=== PATIENT | male | born 1960 | race African-American/Black ===

== ENCOUNTER 2022-02-28 09:47 | Emergency (ER) | payer OTHER, SELFPAY ==
[2022-02-28 09:49] VITALS: BP 145/86; PULSE 62; RESP 14; O2SAT 100
[2022-02-28 10:14] VITALS: O2SAT 98
[2022-02-28 10:15] VITALS: O2SAT 97
[2022-02-28 10:16] VITALS: BP 144/84; O2SAT 97
--- NOTE | 2022-02-28 11:52 | ED.GENADULT ---
HPI - General Adult General Chief complaint: Unspecified Stated complaint: swollen tonsils, difficulty swallowing Time Seen by Provider: 02/28/22 11:37 History of Present Illness HPI narrative: 61-year-old male presents emergency room secondary difficulty in swallowing. He states he felt like something swollen in the back of his throat. Never anything like this before. Denies any chills or fever. No history of recurrent pharyngitis tonsillitis. States he does have a history of some allergies. Related Data Home Medications Medication Instructions Recorded Confirmed atorvastatin 20 mg tablet tablet 02/28/22 Allergies Allergy/AdvReac Type Severity Reaction Status Date / Time tetracycline Allergy Mild Rash Verified 02/28/22 09:52 Sulfa (Sulfonamide Allergy Rash Verified 02/28/22 09:52 Antibiotics) Review of Systems Review of Systems: CONSTITUTIONAL: Denies fever, chills, or sweats. EYES: Denies visual changes, redness, or discharge. ENT: Denies rhinorrhea, congestion, sore throat, or otalgia. Mild difficulty in swallowing. CARDIOVASCULAR: Denies chest pain, palpitations, or edema. RESPIRATORY: Denies cough or dyspnea. GASTROINTESTINAL: Denies abdominal pain, nausea, vomiting, or diarrhea. GENITOURINARY: Denies dysuria or hematuria. SKIN: Denies rash or itching. MUSCULOSKELETAL: Denies back pain, joint pain, or myalgia. NEUROLOGIC: Denies headache, numbness, or weakness. PSYCHIATRIC: Denies anxiety or depression. PMFSH Past Medical History Medical History Allergies Social History Social History Living arrangements: with family Exam Narrative: APPEARANCE: Well appearing, no pain or distress, well-nourished. Head normocephalic and atraumatic. EYES: PERRLA/EOMI, conjunctivae very clear. NOSE: Normal with no drainage EARS:TMS clear Elliott Mejia, with good light reflex. THROAT: Noted to have edema to his uvula. There is no exudates. He is able to speak and swallow without significant difficulty. NECK: Supple. No adenopathy, no masses. RESPIRATORY: Airway patent, respirations nonlabored. Clear to auscultation bilaterally, no rales, rhonchi, wheezing. CARDIOVASCULAR: Regular rate and rhythm without murmurs, rubs, or gallops. ABDOMINAL: Soft, nontender, nondistended, no hepatosplenomegaly Musculoskeletal: Moves all extremities. Strength/ROM intact, No edema, No calf tenderness. NEURO: Alert. Cranial nerves II through XII intact. Normal gait. Good coordination. Nonfocal examination. SKIN:: Warm, dry. Normal Color PSYCHIATRIC: Normal affect/mood, normal interaction Course Vital Signs Vital signs: Vital Signs Pulse Rate 62 02/28/22 09:49 Respiratory Rate 14 02/28/22 09:49 Blood Pressure 145/86 H 02/28/22 09:49 Pulse Oximetry 100 02/28/22 09:49 Pulse Rate 62 02/28/22 09:49 Respiratory Rate 14 02/28/22 09:49 Blood Pressure 144/84 H 02/28/22 10:16 Pulse Oximetry 97 02/28/22 10:16 Medical Decision Making MDM Narrative Medical decision making narrative: Patient reassured that this is just edema to his uvula. We will treat him with some steroids and antihistamines. Also told him to drink cold substance. This generally resolves on its own within 12 to 24 hours. Vital Signs Vital Signs: Vital Signs Pulse Rate 62 02/28/22 09:49 Respiratory Rate 14 02/28/22 09:49 Blood Pressure 145/86 H 02/28/22 09:49 Pulse Oximetry 100 02/28/22 09:49 Pulse Rate 62 02/28/22 09:49 Respiratory Rate 14 02/28/22 09:49 Blood Pressure 144/84 H 02/28/22 10:16 Pulse Oximetry 97 02/28/22 10:16 Discharge Plan Discharge Clinical Impression: Uvular swelling Patient Disposition: Home, Self-Care Condition: Stable Instructions: General Allergic Reaction (ED) Additional Instructions: Drink cold substances. Return if worse. Prescriptions: New
[2022-02-28 11:58] VITALS: BP 132/86; PULSE 92; RESP 19; O2SAT 99
== END 2022-02-28 11:59 | disposition home or self-care (01) ==
PROVIDERS: Emergency Provider Emergency Medicine; PCP Family Medicine Adolescent Medicine
DX: K13.79 Other lesions of oral mucosa (principal)
CPT/HCPCS: 99283

== ENCOUNTER 2022-11-03 03:36 | Emergency (ER) | payer OTHER, SELFPAY ==
[2022-11-03 03:42] VITALS: BP 171/92; PULSE 102; RESP 20; TEMP 37.7; O2SAT 100
--- NOTE | 2022-11-03 04:39 | ED.GENADULT ---
HPI - General Adult General Chief complaint: Urogenital-Male Stated complaint: trouble urinating Time Seen by Provider: 11/03/22 03:52 History of Present Illness HPI narrative: This is a 62-year-old male presenting to ED with chief complaint of difficulty urinating. Patient had a prostate biopsy 6 days ago. Since then he had some blood in his urine and stool. Started to improve and then yesterday started to have significant pain. The pain is located in the suprapubic area, is a dull constant pain is worse when he tries to urinate. Additionally he has rectal pain and pain with defecation. patient's last bowel movement was yesterday. He is still passing gas. patient denies fever, chills, nausea, vomiting. Patient's urologist is Dr. Swain and Fazal Gutiérrez. Related Data Home Medications Medication Instructions Recorded Confirmed atorvastatin 20 mg tablet tablet 02/28/22 03/08/22 Allergies Allergy/AdvReac Type Severity Reaction Status Date / Time tetracycline Allergy Mild Rash Verified 03/08/22 14:40 Sulfa (Sulfonamide Allergy Rash Verified 03/08/22 14:40 Antibiotics) [facility] Past Medical History Medical History Enlarged prostate Family History Family History Mother Breast cancer Hypertension Other Breast cancer Sibling Cerebrovascular accident Grandparent Diabetes mellitus Social History Social History Smoking status: Never smoker Second hand tobacco smoke exposure: No Alcohol use details: Ocassional Substance use: never Substance use type: does not use Living arrangements: with family Occupation/Education: occupation Gender identity (if verbalized by the patient): Male Sexual Orientation (if Verbalized by the Patient): Straight or Heterosexual Spiritual care concerns: No Agree to blood products: Yes Exam Narrative: APPEARANCE: No apparent distress. Head: atraumatic. EYES: EOMI, NOSE: Atraumatic NECK: Trachea midline RESPIRATORY: No increased rate of breathing CARDIOVASCULAR: RRR, ABDOMINAL: Non-distended , mild suprapubic tenderness. Point of care bladder ultrasound performed by myself revealed 500 cc of Postvoid residual. rectal exam revealed a large prostate that is not tender or boggy. MUSCULOSKELETAl: No obvious deformities NEURO: Alert. Moving 4/4 extremities SKIN:: Warm, dry. Normal color PSYCHIATRIC: Normal affect Course Vital Signs Vital signs: Vital Signs Temperature 99.8 F H 11/03/22 03:42 Pulse Rate 102 H 11/03/22 03:42 Respiratory Rate 20 11/03/22 03:42 Blood Pressure 171/92 H 11/03/22 03:42 Pulse Oximetry 100 11/03/22 03:42 Oxygen Delivery Room Air 11/03/22 03:42 Temperature 98.2 F 11/03/22 06:25 Pulse Rate 84 11/03/22 06:25 Respiratory Rate 18 11/03/22 06:25 Blood Pressure 125/80 11/03/22 06:25 Pulse Oximetry 99 11/03/22 06:25 Oxygen Delivery Room Air 11/03/22 03:42 Medical Decision Making MDM Narrative Medical decision making narrative: -Presentation: 62-year-old male presents 6 days after a prostate biopsy with pain on urination and rectal pain. 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 Cardona -Independent interpretation of studies: Care bladder ultrasound revealed over 500 cc of urine. Green catheter was placed. Urinalysis shows 16 red blood cells 0-5 white blood cells with no bacteria nitrites or leuk esterase. Dx tests considered but not ordered: -Procedures: Green insertion -Intervent
[2022-11-03] MEDS: SODIUM CHLORIDE 0.9% IV 2,000 ML 999 ML IV CONT (05:05)
[2022-11-03] MEDS: HYDROmorphone HCL INJ (*CRX) 1 MG/ML SYR 0.5 MG IV PUSH (05:06)
[2022-11-03 05:56] LABS: Appearance Urine Clear (Clear); Bacteria Urine None Seen /hpf; Bilirubin Urine Negative (Negative); Blood Urine 1+ (Negative); Color Urine Yellow (Yellow); Glucose Urine UA Negative (Negative); Ketones Urine Trace mg/dL (Negative); Leukocyte Esterase Ur Negative LEU/UL (Negative); Nitrate Urine Negative (Negative); Non Pathogenic Casts 0-2; Protein Urine Negative (Negative); Specific Grav Ur 1.015 (1.001-1.035); Squamous Epithelial Cell Urine None seen /hpf (Few); Urobilinogen Urine 0.2 mg/dL (<2.0); WBC Urine 0-5 /hpf
[2022-11-03 06:02] LABS: Add Urine Microscopic? YES
[2022-11-03 06:25] VITALS: BP 125/80; PULSE 84; RESP 18; TEMP 36.8; O2SAT 99
[2022-11-03 06:59] VITALS: BP 123/79; PULSE 77; RESP 18; TEMP 36.6; O2SAT 99
== END 2022-11-03 07:00 | disposition home or self-care (01) ==
PROVIDERS: Emergency Provider Emergency Medicine; PCP Family Medicine Adolescent Medicine
DX: N40.1 Benign prostatic hyperplasia with lower urinary tract symptoms (principal); N13.8 Other obstructive and reflux uropathy
CPT/HCPCS: 51702; 81001; 96365; 96375; 99284; J0131; J1170; J7030

== ENCOUNTER 2023-10-26 08:04 | Outpatient (CLI) | payer OTHER, SELFPAY ==
--- NOTE | ~2023-10-26 | XR_ITS ---
EXAMINATION: XR chest 2V DATE: 10/26/2023 08:16 INDICATION: Right-sided chest pain and cough TECHNIQUE: PA and lateral views of the chest are obtained. COMPARISON: None available FINDINGS: The left lung is clear. There is a small to moderate size right pleural effusion with assoc iated airspace opacities. The cardiomediastinal silhouette is normal. There is mild thoracic spondylo sis. IMPRESSION: 1. Small right pleural effusion with associated airspace opacities, consistent with atelectasis versu s pneumonia. Reviewed, dictated and finalized at location L. GER OF APPLICATIONS DEVELOPMENT IMPRESSION: 1. Small right pleural effusion with associated airspace opacities, consistent with atelectasis versus pneumonia.
== END 2023-10-26 08:05 ==
PROVIDERS: PCP Family Medicine Adolescent Medicine; Visit Provider Family Medicine Adolescent Medicine
DX: R05.9 Cough, unspecified (principal); R06.2 Wheezing; J90 Pleural effusion, not elsewhere classified
CPT/HCPCS: 71046

== ENCOUNTER 2024-09-08 15:12 | Emergency (ER) | payer OTHER, SELFPAY ==
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
[2024-09-08 15:14] VITALS: BP 181/88; PULSE 76; RESP 18; TEMP 36.7; O2SAT 100
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
[2024-09-08] MEDS: CYCLOBENZAPRINE HCL 10 MG TABLET PO (15:36)
[2024-09-08] MEDS: ACETAMINOPHEN 500 MG TABLET 1000 MG PO (15:37)
[2024-09-08 17:10] VITALS: BP 132/80; PULSE 78; RESP 16; TEMP 36.6; O2SAT 100
--- OUTSIDE RECORDS SUMMARY | 2024-09-12 10:45 | XMS_ITS | Clinical Summary ---
Author Organization [facility] Address [address] [place] [id number] Care Team Providers Care Manager Performance Name Role Phone Mina Herman MD Primary Care Prov ider Allergies Active Allergy Reactions Criticality Noted Date Comments Sulfa (Sulfonamide Antibiotics) Hives High 07/04/2021 Tetracycline Hives High 02/26/2021 Medications testosterone cypionate (DEPO-TESTOTERON E) 100 mg/mL injectionIndicat ions:hormone replacement Inject 100 mg into the muscle as instructed once a week Monday Active multivitamin capsuleIndicatio ns:Vitamin Deficiency Prevention Take 1 capsule by mouth nightly Active omega-3 fatty acids (LOVAZA) 1 gram capsuleIndicatio ns:hypertriglyce ridemia Take 2 g by mouth nightly Active folic acid (FOLVITE) 800 mcg tabletIndication s:supplement Take 400 mcg by mouth nightly Active garlic 100 mg tabletIndication s:supplement Take 1 tablet by mouth nightly Active zinc 50 mg tabletIndication s:supplement Take 1 tablet by mouth nightly Active saw palmetto 160 mg capsuleIndicatio ns:supplements Take 1 tablet by mouth nightly Active atorvastatin (LIPITOR) 10 mg tabletIndication s:hyperlipidemia Take 10 mg by mouth nightly Active cetirizine (ZyrTEC) 10 mg tablet Take 10 mg by mouth as needed for allergies Active finasteride (PROSCAR) 5 mg tabletIndication s:Benign prostatic hyperplasia with lower urinary tract symptoms, symptom details unspecified Take 1 tablet (5 mg total) by mouth daily 30 tablet 11 3 Active Active Problems Problem Noted Date Diagnosed Date Urinary retention 11/08/2022 Elevated PSA 10/13/2022 Overview (10/13/2022): Added automatically from request for surgery [id number] Surgical History Surgery Date Site/Laterality Comments COLONOSCOPY Family History Medical History Relation Name Comments Anesthesia problems Neg Hx Social History Tobacco Use Types Packs/Day Years Used Date Smoking Tobacco: Never Smokeless Tobacco: Never AUDIT-C Answer Date Recorded Q1: How often do you have a drink containing alc ohol? 2-3 times a week 10/28/2022 Q2: How many drinks containi ng alcohol do you have on a typical day when you are drinking? 1 or 2 10/28/2022 Q3: How often do you have si x or more drinks on one occasion? 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9 10/14/2022 12:15 PM COMPOUNDING SCALER Plan of Treatment Health Maintenance Due Date Last Done Comments Colon Cancer Screening-Colonoscopy 1960 Depression Screening 1960 Hepatitis C Screening 1960 Prostate Cancer Screening-PSA 1960 DTaP/Tdap/Td Vaccine (1 - Tdap) 1971 Hepatitis B Screening 1978 Regular Well Visit/Exam 18-64 1978 Zoster Vaccine (1 of 2) 2010 Covid-19 Vaccine ( season) 2024 07/09/2022, 07/21/2021, 12/08/2020, Additional history exists Influenza Vaccine (#1) 2024 07/09/2022 Pneumococcal vaccine <65 Aged Out No longer eligible based on patient's age to complete this topic Insurance [facility] Care Teams Manager Performance Relationship Specialty Start Date End Date Mina Herman MD [address] [place] [address] PCP - General Family Medicine 09/19/22
--- OUTSIDE RECORDS SUMMARY | 2024-09-12 10:45 | XMS_ITS | Referral Summary ---
Author Organization [facility] Address [address] [place] [id number] Care Team Providers Care Inspector Floor Name Role Phone Mina Herman MD Primary [...] (10/13/2022): Added automatically from request for surgery [id number] Social History Tobacco Use Types Packs/Day Years [...] on file Legal Sex Male 10:53 AM AGILE COACH Gender Identity Not on file Sexual Orientation Not on file Last Filed Vital Signs Vital Sign Reading Time Taken Comments Blood Pressure 154/76 10/28/2022 11:00 AM AGILE COACH Pulse 48 10/28/2022 11:05 AM AGILE COACH Temperature 36.3 ??C (97.3 ??F) 10/28/2022 9:57 AM CS T Respiratory Rate 12 10/28/2022 10:50 AM AGILE COACH Oxygen Saturation 99% 10/28/2022 11:05 AM AGILE COACH Inhaled Oxygen Concentration - - Weight 119.7 kg (264 lb) 10/14/2022 12:15 PM AGILE COACH Height 196.9 cm (6' 5.5 ) 10/14/2022 12:15 PM CS T Body Mass Index 30.9 10/14/2022 12:15 PM AGILE COACH Plan of Treatment Not on file Insurance [facility] CHOICE PLUS [facility] HMO/PPO Address: [address] [address] [place] [address] [facility] CHOICE PLUS [facility] HMO/PPO Address: [address] [address] [place] [address] Care Teams Inspector Floor Relationship Specialty Start Date End Date Mina Herman MD [address] [place] [address] PCP - General Family Medicine 09/19/22
--- OUTSIDE RECORDS SUMMARY | 2024-09-12 10:45 | XMS_ITS | Clinical Summary ---
Author Organization [facility] [place] Address [address] [place] [address] Care Team Providers Care Cannon Crewmember Name Role Phone Unavailable Primary Care Provider Unavailabl e Allergies Active Allergy Reactions Criticality Noted Date Comments Sulfa (Sulfonamide Antibiotics) Hives High 0704/2021 Tetracycline Hives High 02/26/2021 Medications No known medications Active Problems No known active problems Social History Tobacco Use Types Packs/Day Years Used Date Smoking Tobacco: Never Assessed Sex and Gender Information Value Date Recorded Sex Assigned at Not on file Legal Sex Male 12:30 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 MARINE Gender Identity Not on file Sexual Orientation Not on file Last Filed Vital Signs Vital Sign Reading Time Taken Comments Blood Pressure 119/73 02/26/2021 4:22 PM CDT Pulse 74 02/26/2021 4:22 PM CDT Temperature 37 ??C (98.6 ??F) 02/26/2021 4:22 PM CDT Respiratory Rate 15 08/16/2020 1:04 PM PIPE FITTER MARINE Oxygen Saturation 97% 02/26/2021 4:22 PM CDT Inhaled Oxygen Concentration - - Weight 111.1 kg (245 lb) 02/26/2021 4:22 PM CDT Height 198.1 cm (6' 6 ) 02/26/2021 4:22 PM CDT Body Mass Index 28.31 02/26/2021 4:22 PM CDT Plan of Treatment Health Maintenance Due Date Last Done Comments DTAP/TDAP/TD VACCINES (1 - Tdap) 1979 COLORECTAL SCREENING 2005 Colorectal Cancer Screening 2005 FIT-DNA Q 3 years 2005 FIT/FOBT Q 1 year 2005 Flex Sig/CT Colonography Q 5 years 2005 ZOSTER VACCINE (1 of 2) 2010 INFLUENZA VACCINE (#1) 2024 RSV VACCINE (60+ or ) (1 - 1-dose 75+ series) 2035 PNEUMOCOCCAL VACCINE 0-64 YEARS Aged Out No longer eligible based on patient's age to complete this topic Insurance CHOICE PLUS [employer] CHOICE PLUS CHOICE PLUS [employer] CHOICE PLUS
== END 2024-09-08 17:12 | disposition home or self-care (01) ==
PROVIDERS: Emergency Provider Physician Assistant; PCP Family Medicine Adolescent Medicine
DX: S39.012A Strain of muscle, fascia and tendon of lower back, initial encounter (principal); S63.501A Unspecified sprain of right wrist, initial encounter; S63.612A Unspecified sprain of right middle finger, initial encounter; S43.401A Unspecified sprain of right shoulder joint, initial encounter; V89.2XXA Person injured in unspecified motor-vehicle accident, traffic, initial encounter
CPT/HCPCS: 72131; 73030; 73110; 73130; 99284; A9270

== ENCOUNTER 2024-10-25 15:04 | Outpatient (CLI) | payer OTHER, SELFPAY ==
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
== END 2024-10-25 15:05 | disposition home or self-care (01) ==
LOC: MICIMG 15:05
PROVIDERS: PCP Family Medicine Adolescent Medicine; Visit Provider Family Medicine Adolescent Medicine
DX: M19.011 Primary osteoarthritis, right shoulder (principal); M75.51 Bursitis of right shoulder
CPT/HCPCS: 73221

== ENCOUNTER 2025-04-22 15:32 | Outpatient (CLI) | payer BC, SELFPAY ==
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
== END 2025-04-22 15:33 | disposition home or self-care (01) ==
PROVIDERS: PCP Orthopaedic Surgery; Visit Provider Orthopaedic Surgery
DX: M75.41 Impingement syndrome of right shoulder (principal); M25.512 Pain in left shoulder
CPT/HCPCS: 73030

== ENCOUNTER 2025-06-09 08:10 | Outpatient (CLI) | payer BC, SELFPAY ==
--- NOTE | ~2025-06-09 | MR_ITS ---
EXAMINATION: MR shoulder LT wo con DATE: 06/09/2025 08:50 INDICATION: Impingement syndrome of the left shoulder TECHNIQUE: Magnetic resonance imaging (MRI) of the left shoulder was performed without intravenous contrast. Sequences included axial PD-weighted FS FSE, coronal oblique PD-weighted FS FSE, coronal oblique T2-weighted FS FSE and sagittal T1-weighted SE. Patient terminated the study prior to obtaining the sagittal PD-weighted FS FSE sequence and before repetition of the coronal fluid sensitive FSE STIR which was somewhat limited by motion artifact. COMPARISON: None. FINDINGS: Coracoacromial arch: The acromion undersurface is curved in morphology (type II). The coracoacromial ligament is normal. Mild to moderate acromioclavicular osteoarthritis with mild subarticular cystlike change along the acromial side of the joint space. Rotator cuff: Mild supraspinatus and infraspinatus tendinopathy with full or near full- thickness tear measuring 8 mm AP along the superior facet footplate of the distal supraspinatus tendon but without medial retraction. There is likely some shallow bursal sided fraying along the distal infraspinatus tendon. The teres minor tendon is normal. Mild subscapularis tendinopathy without tear. There is normal rotator cuff muscle bulk and signal. Biceps tendon, glenoid labrum and glenohumeral cartilage: Long head of the biceps tendon is normal. Glenoid labrum is normal. Glenohumeral cartilage is normal. Fluid: Physiologic amount of fluid in the glenohumeral joint and biceps tendon sheath. No loose osteochondral bodies. Mild increased fluid signal in the subacromial/subdeltoid bursa and small to moderate amount fluid in the subcoracoid bursa which could be due to bursitis or extension of fluid from the glenohumeral joint through the suspected full-thickness rotator cuff tear. Bones: No fracture or pathologic marrow replacing process. IMPRESSION: 1. Mild rotator cuff tendinopathy with small full/near full-thickness tear extending 8 mm AP along the superior facet footplate of the distal supraspinatus tendon. 2. Increased fluid in the subacromial/subdeltoid and subcoracoid bursae consistent with mild bursitis extension of fluid from the glenohumeral joint space through the likely full-thickness rotator cuff tear. 3. Mild to moderate acromioclavicular osteoarthritis. Reviewed, dictated and finalized at location A. IMPRESSION: 1. Mild rotator cuff tendinopathy with small full/near full-thickness tear exte nding 8 mm AP along the superior facet footplate of the distal supraspinatus te ndon. 2. Increased fluid in the subacromial/subdeltoid and subcoracoid bursae consist ent with mild bursitis extension of fluid from the glenohumeral joint space thr ough the likely full-thickness rotator cuff tear. 3. Mild to moderate acromioclavicular osteoarthritis.
== END 2025-06-09 08:11 | disposition home or self-care (01) ==
LOC: MICIMG 08:11
PROVIDERS: PCP Family Medicine Adolescent Medicine; Visit Provider Orthopaedic Surgery
DX: M75.42 Impingement syndrome of left shoulder (principal); M19.012 Primary osteoarthritis, left shoulder
CPT/HCPCS: 73221